=== PATIENT | male | born 1940 | race Caucasian/White ===

== ENCOUNTER 2024-07-21 13:01 | Day surgery (SDC) | payer MEDICARE, BC, SELFPAY ==
[2024-07-19 10:49] VITALS: BMI 26.9
[2024-07-21 13:22] VITALS: BP 166/91; PULSE 84; RESP 18; TEMP 36.6; O2SAT 96
[2024-07-21] MEDS: LACTATED RINGERS 1000ML 1,000 ML 25 ML IV (13:28)
[2024-07-21 13:44] VITALS: O2SAT 99
--- NOTE | 2024-07-21 13:50 | P.PCN_ITS ---
[facility] Procedure Note Date: 07/21/24 Time: 13:50 Procedure Note:: Upper Endoscopy Procedure Report: Esophagogastroduodenoscopy with cold biopsies Endoscopost: Omar Amin II, MD Referring Physician: Anthony Baptiste MD Date of Procedure: July 21, 2024 Equipment: Olympus GIF 190 standard upper endoscope Sedation: MAC sedation Indications: Mr. Cheatham is an 83-year-old gentleman who is here for diagnostic upper endoscopy secondary to dyspepsia. He has had generalized abdominal di scomfort, sour stomach and belching. He had some of this previously but this is lasting quite a bit longer. He does have a lot of stress. He has had a loss of appetite and reports some early satiety and a little weight loss. He has not yet had a CAT scan. His father had pancreatic cancer at the age of 62. The patient did take a short course of Prilosec which did not help. He has tried Tums, Pepto-Bismol and [id number] Beano and Iberogast without much improvement. Procedure: Prior to the procedure, a history and physical exam was performed, and patient's medications and allergies were reviewed. The risks, benefits and alternatives of the sedation and procedure were discussed with the patient. All questions were answered and informed consent was obtained. The patient was brought to the procedure room. Patient identification and proposed procedure were verified by the physician and the nurse. The patient was placed in a left lateral decubitus position and the scope was passed under direct vision. Throughout the procedure, the patient's blood pressure, pulse, and oxygen saturations were monitored continuously. The upper GI endoscopy was accomplished without diff iculty. The patient tolerated the procedure well. Findings: The scope was passed directly into the upper esophagus and advanced to the third portion of the duodenum. At the ampulla in the second portion of the duodenum, there was some edema and friability with some mild extrinsic compression and a biopsy was taken from near the ampullary orifice. The first portion, duodenal bulb and pylorus were normal. The scope was withdrawn through a normal pylorus into the stomach. There was moderate bile reflux with moderate linear reactive gastropathy of the antrum and proximal body of the stomach. The fundus of the stomach was entirely normal. Upon retroflexion there was no significant hiatal hernia. Biopsies were taken from the antrum of the stomach. The scope was then withdrawn into the esophagus. There was no evidence of any reflux esophagitis or Gonzalez's. The remainder of the esophageal mucosa was normal. Impression: 1. Ampullary edema/friability with some possible extrinsic compression 2. Bile reflux with moderate linear reactive gastropathy Plan: This friability/edema at the ampullary orifice gives me some concern about underlying pancreatic pathology. I will follow-up the biopsies. I have recommended that CAT scan of the abdomen and pelvis with attention to the pancreas. The patient's father had pancreatic cancer. If the biopsies are negative and the CAT scan shows no significant abnormalities, I would focus my attention on the bile reflux with reactive gastropathy. I will discuss the findings with the patient and family.
[2024-07-21 14:06] VITALS: BP 160/90; PULSE 85; RESP 18; TEMP 36.9; O2SAT 93
[2024-07-21 14:16] VITALS: BP 133/69; PULSE 78; RESP 16; O2SAT 95
[2024-07-21 14:26] VITALS: BP 136/74; RESP 18; O2SAT 96
[2024-07-21 14:36] VITALS: BP 139/78; PULSE 80; RESP 18; O2SAT 96
--- NOTE | 2024-07-21 14:44 | CT_ITS ---
FINAL REPORT TECHNIQUE: Pre and post contrast images of the abdomen were obtained. IV contrast was administered. Coronal reformatted images were also obtained and reviewed.This study was performed with techniques to keep radiation doses as low as reasonably achievable (ALARA). Individualized dose reduction techniques using automated exposure control or adjustment of mA and/or kV according to the patient's size were employed. CLINICAL HISTORY: Ampullary/pancreatic lesion/compression on EGD COMPARISON: None FINDINGS: Scarring is noted in the right middle lobe and lingula.. The heart is normal in size. There is a benign-appearing cyst in the right lobe of the liver measuring up to 1.3 cm. The gallbladder is unremarkable. The spleen is unremarkable. No adrenal mass is present. There are few small calcifications in the head of the pancreas, probably representing chronic pancreatitis. There is inflammatory reaction in the head of the pancreas, probably related to localized acute pancreatitis. The kidneys are normal, without evidence of mass or hydronephrosis. No evidence of kidney stones. The aorta is normal in caliber. There is no free fluid or adenopathy. No mass or abnormal fluid collection is seen. There is a small fat containing umbilical hernia. IMPRESSION: Inflammation in the head of the pancreas with a few small scattered calcifications consistent with acute and chronic pancreatitis. Reviewed, Interpreted and Dictated by Obi Lopez MD Transcribed by Skye Espinoza Authenticated and . [facility]
--- NOTE | 2024-07-21 14:56 | P.PNANES_ITS ---
[facility] Disclaimer: The information contained in this section may have been updated after the patient was seen, as this information can be updated by other users. Medical History (Updated 07/21/24 @ 13:21 by Annie Laughlin RN) History of asthma Surgical History (Updated 07/21/24 @ 13:21 by Annie Laughlin RN) History of surgery on arm History of appendectomy History of tonsillectomy History of bone graft History of colonoscopy Family History Other No significant family history Social History Smoking Status: Former smoker alcohol intake: never substance use type: denies use current occupational status: retired [employer] Anesthesia Checklist Patient Identification Patient Identification: Arm Band and Family Structural Data Admitted From: Home Planned Operative Procedure/s: EGD Consent for Planned Operative Procedure(s) Verified: Yes NPO Status Verified Time NPO: 00:00 Additional verifications Patient : No Anesthesia Reactions: No Hx Blood Transfusions: No Blood Transfusion Reaction: No Cephalosporin Allergy: No Previous Colonoscopy: Yes Airway Assessment Mallampati Score:: Class II C-Spine Mobility Assessed: Yes TMJ Mobility Assessed: Yes Dentition: Good Dentition Neurological Assessment Level of Consciousness: Awake, Alert, Appropriate and Follows Commands Hx Seizures: No Anesthesia Plan Anesthesia Risk discussed: Yes ASA Class: II Anesthesia Type: MAC Preoperative Comments Pre-Operative Comments: loss of appetite.
[2024-07-21 15:07] LABS: Basophils # 0.1 K/mm3 (0-0.2); Basophils % 0.6 % (0.1-2.0); Eosinophils # 0.1 K/mm3 (0.0-0.4); Eosinophils % 1.3 % (0.1-12.0); Hematocrit 40.2 % (42.0-52.0); Hemoglobin 13.9 g/dL (14.1-18.0); Lymphocytes # 2.2 K/mm3 (0.7-4.5); Mean Corpuscular HGB Conc 34.7 g/dL (31.8-35.4); Mean Corpuscular Hemoglobin 32.3 pg (27.0-31.2); Mean Corpuscular Volume 92.9 fl (80-94); Mean Platelet Volume 8.1 fl (7.4-10.4); Monocytes # 0.6 K/mm3 (0.1-1.0); Monocytes % 6.6 % (1.7-9.3); Neutrophils # 6.6 K/mm3 (1.8-7.8); Neutrophils % 68.6 % (37.0-80.0); Platelet Count 266 K/mm3 (142-424); Red Blood Count 4.32 M/mm3 (4.60-6.20); Red Cell Distribution Width 13.1 % (11.5-17.5); White Blood Count 9.6 K/mm3 (4.8-10.8)
[2024-07-21 15:17] LABS: Chloride 96 mmol/L (98-107); Potassium 3.9 mmoL/L (3.5-5.1); Sodium 128 mmol/L (136-145)
[2024-07-21 15:20] LABS: Alanine Aminotransferase 21 U/L (12-78); Albumin/Globulin Ratio 1.7 (1.1-1.8); Alkaline Phosphatase 41 U/L (38-126); Amylase 54 U/L (30-110); Anion Gap 11.9 mEq/L (5-15); Aspartate Amino Transferase 24 U/L (17-59); Bilirubin,Total 0.8 mg/dl (0.2-1.3); Blood Urea Nitrogen 10 mg/dl (9-20); Calcium 9.1 mg/dl (8.4-10.2); Carbon Dioxide 24 mmol/L (22.0-30.0); Creatinine Clearance Estimated 80 mL/min (50-200); Estimated Glomerular Filt Rate 108 ml/min (>60); GFR (African American) 131 ML/MIN (>60); Globulin 2.4 g/dL (1.3-3.2); Glucose 102 mg/dl (74-100); Lipase 56 U/L (23-300); Total Protein,Serum 6.4 g/dl (6.3-8.2)
[2024-07-21] MEDS: IOPAMIDOL-370 (76%);100ML BOTTLE 75 ML IV (15:45)
[2024-07-21] MEDS: SODIUM CHLORIDE 0.9% 10ML SYR (RAD ONLY) 10 ML IV (15:45)
[2024-07-22 08:21] LABS: CA 19-9 1375 U/mL (0-35)
[2024-07-25 04:23] LABS: Pancreatic Elastase, Fecal >800 (>200)
== END 2024-07-21 15:00 | disposition home or self-care (01) ==
PROVIDERS: PCP Emergency Medicine; Visit Provider Internal Medicine Gastroenterology
PROC: 0DJ08ZZ Inspection of Upper Intestinal Tract, Via Natural or Artificial Opening Endoscopic (ICD-10-PCS; CPT 43235; principal; 2024-07-21 14:30)
DX: R10.84 Generalized abdominal pain (principal); R68.81 Early satiety; R11.2 Nausea with vomiting, unspecified; F12.90 Cannabis use, unspecified, uncomplicated; K31.9 Disease of stomach and duodenum, unspecified; Z80.8 Family history of malignant neoplasm of other organs or systems
CPT/HCPCS: 43239; 74170; 80053; 82150; 82656; 83690; 85025; 86301; 88305; J7120; Q9967

== ENCOUNTER 2025-06-07 14:51 | Outpatient (CLI) | payer MEDICARE, BC, SELFPAY ==
[2025-06-07 15:03] LABS: Adenovirus F 40/41, stool Not Detected (NotDetected); Clostridium Difficile A/B, PCR Not Detected (NotDetected); Cyclospora Cayetanesis Not Detected (NotDetected); Plesimonas Shigalloides, PCR Not Detected (NotDetected); Salmonella, PCR Not Detected (NotDetected); Shiga-like toxin E coli Not Detected (NotDetected); Shigella Enterovasive E coli Not Detected (NotDetected); Vibrio, PCR Not Detected (NotDetected); Yersinia Entercolitica, PCR Not Detected (NotDetected)
[2025-06-11 00:08] LABS: H. pylori Stool Ag, EIA Negative (Negative)
== END 2025-06-07 23:59 | disposition home or self-care (01) ==
LOC: LAB 14:52
PROVIDERS: PCP Emergency Medicine; Visit Provider Internal Medicine Gastroenterology
DX: K29.70 Gastritis, unspecified, without bleeding (principal); B96.81 Helicobacter pylori [H. pylori] as the cause of diseases classified elsewhere; Z86.19 Personal history of other infectious and parasitic diseases
CPT/HCPCS: 83013; 87338; 87506